=== PATIENT | male | born 1990 | race Caucasian/White ===

== ENCOUNTER 2020-04-29 11:42 | Emergency (ER) | payer SELFPAY ==
[~2020-04-29] VITALS: Ht 188 cm; Wt 104.0 kg
[2020-04-29 11:50] VITALS: BP 152/89
[2020-04-29] MEDS ORDERED: PLEASE ENTER ALLERGIES MC SCH (12:00)
[2020-04-29] MEDS ORDERED: DIPH,PERTUSS(ACELL),TET VAC/PF 0.5 ML IM-VACC ONE (12:00)
[2020-04-29] MEDS ORDERED: PLEASE ENTER HEIGHT AND WEIGHT MC SCH (12:00)
[2020-04-29] MEDS ORDERED: LIDOCAINE-MPF 1%, 5ML INFIL ONE (12:00)
--- NOTE | 2020-04-29 13:16 | NUR ---
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
== END 2020-04-29 13:18 | disposition left against medical advice (07) ==
LOC: ED 13:12
DX: S51.812A Laceration without foreign body of left forearm, initial encounter (principal); X58.XXXA Exposure to other specified factors, initial encounter; Y93.E1 Activity, personal bathing and showering; Y92.89 Other specified places as the place of occurrence of the external cause; Y99.8 Other external cause status
CPT/HCPCS: 99283